=== PATIENT | female | born 1975 | race Caucasian/White ===

== ENCOUNTER → 2018-02-01 09:38 | Outpatient (CLI) | payer OTHER, SELFPAY ==
[2018-02-01 10:27] LABS: Hematocrit 40.3 % (36-46); Hemoglobin 13.3 g/dL (12.0-16.0); Mean Corpuscular Hemoglobin 27.6 PG (26-34); Mean Corpuscular Volume 83.6 fL (80-100); Platelet Count 206 X10^3/uL (150-400); Red Blood Cell Count 4.82 X10^6/uL (4.0-5.2); Red Cell Distribution Width 15.6 % (11.6-14.8); White Blood Cell Count 10.5 X10^3/uL (4.5-11.0)
[2018-02-01 10:49] LABS: Neutrophils Absolute Manual 6825 /uL (3000-5900); Total Cells Counted 100
[2018-02-01 10:50] LABS: Morphology Comment Normal Morphology
[2018-02-01 11:25] LABS: Free T4, Direct Thyroxine 0.81 ng/dL (0.78-2.19)
[2018-02-01 11:39] LABS: Thyroid Stimulating Hormone 2.35 uIU/mL (0.47-4.68)
== END ==
PROVIDERS: PCP Obstetrics & Gynecology; Visit Provider Obstetrics & Gynecology
DX: R53.83 Other fatigue (principal)
CPT/HCPCS: 36415; 84439; 84443; 85025

== ENCOUNTER → 2018-05-05 16:07 | Outpatient (CLI) | payer OTHER, SELFPAY ==
[2018-05-09 15:54] LABS: Estradiol 74 pg/mL; Progesterone < 0.5 ng/mL
== END ==
PROVIDERS: PCP Obstetrics & Gynecology; Visit Provider Obstetrics & Gynecology
DX: E89.40 Asymptomatic postprocedural ovarian failure (principal)
CPT/HCPCS: 36415; 82670; 84144

== ENCOUNTER → 2018-06-02 11:44 | Outpatient (CLI) | payer OTHER, SELFPAY ==
--- NOTE | 2018-06-02 | DI.CT.S_ITS ---
PROCEDURE: CT ABDOMEN PELVIS W CON INDICATIONS: GENERALIZED ABDOMINAL PAIN/NAUSEA TECHNIQUE: After the administration of oral and intravenous contrast, 5 mm thick sections acquired from the diaphragms to the symphysis. 5 mm thick coronal and sagittal reformats were performed. For radiation dose reduction, the following was used: automated exposure control, adjustment of mA and/or kV according to patient size. COMPARISON: [facility] [place], CT, ABDOMEN/PELVIS WITH CONTRAST, 10/04/2015, 14:34. [facility] [place], [place], ABDOMEN/PELVIS WITH CONTRAST, 07/31/2015, 22:04. [facility] [place], [place], ABDOMEN/PELVIS WITH CONTRAST, 04/04/2009, 16:41. FINDINGS: Image quality: Diagnostic. ABDOMEN: Lung bases: Lung bases are clear. Heart size is normal. Solid organs: The liver is slightly hypodense when compared to the spleen. No definite liver lesions are appreciated. The gallbladder is not enlarged or inflamed. The common bile duct is normal in course and caliber. The spleen, adrenals, and kidneys appear to be within normal limits. No hydronephrosis of the kidneys is identified. No renal calculi are appreciated. There is marked atrophy involving the body and tail of the pancreas, which is unchanged since multiple prior examinations dating back to 2008. The previously seen peripherally calcified pseudocyst within the region of the tail the pancreas has resolved. However, the calcification remains. The head and uncinate process of the pancreas are within normal limits there is no surrounding inflammation is evident. Peritoneum and bowel: There is a small hiatal hernia. Otherwise, stomach and duodenum are unremarkable. No significant small bowel dilatation is present. Moderate residual stool seen within the colon. The appendix is well-visualized and normal. No mesenteric inflammation is evident. There is no free fluid or loculated fluid collection. Nodes and vessels: No retroperitoneal or mesenteric adenopathy. Aorta and inferior vena cava are normal in caliber. Bones: No acute fractures are identified. No suspicious osseous lesions are present. There are mild to moderate degenerative changes of the lower lumbar spine. PELVIS: Genitourinary: Bladder wall thickness is normal. The uterus and ovaries do not appear to be enlarged. Previously seen ovarian cysts have resolved or been excised in the interim. Miscellaneous: No inguinal hernias or adenopathy. No free fluid or loculated fluid collection is evident. Bones: No suspicious bony lesions. No acute pelvic fractures are evident. There are degenerative changes of the bilateral sacroiliac joints. IMPRESSION: 1. No evidence of acute abdominal infection. 2. Probable mild hepatic steatosis. 3. Prominent atrophy of the body and tail of the pancreas is unchanged. No peripancreatic inflammation is evident. 4. No bowel obstruction. The appendix is within normal limits. Dictated by: Dilip Villegas M.D. on 06/02/2018 at 12:17 Approved by: Dilip Villegas M.D. on 06/02/2018 at 12:25
--- NOTE | 2018-06-02 | DI.RAD.S_ITS ---
PROCEDURE: XR CHEST 2V INDICATIONS: ELEVATED WHITE BLOOD CELL TECHNIQUE: 2 views of the chest were acquired. COMPARISON: formerly [facility], CHEST 2 VIEW, 04/04/2009, 18:35. formerly [facility], CHEST 2 VIEW, 04/02/2009, 8:26. FINDINGS: Surgical changes and devices: None. Lungs and pleura: No pleural effusions or pneumothorax. Lungs are clear. Mediastinum: Mediastinal contours are normal. Heart size is normal. Bones and chest wall: No suspicious bony abnormalities. Soft tissues appear unremarkable. IMPRESSION: Normal for age, source of current symptoms is not seen. Dictated by: Tommy Isaacs M.D. on 06/02/2018 at 14:51 Approved by: Tommy Isaacs M.D. on 06/02/2018 at 14:52
--- NOTE | 2018-06-02 | DI.RAD.S_ITS ---
PROCEDURE: XR SHOULDER LT MIN 2V INDICATIONS: ELEVATED WHITE BLOOD CELL TECHNIQUE: 3 views of the shoulder were acquired. COMPARISON: None. FINDINGS: Bones: No fractures or dislocations. No suspicious bony lesions. Visualized ribs appear intact. Soft tissues: No suspicious soft tissue calcifications. IMPRESSION: Normal for age, source of current symptoms is not seen. Dictated by: Tommy Isaacs M.D. on 06/02/2018 at 14:52 Approved by: Tommy Isaacs M.D. on 06/02/2018 at 14:52
== END ==
PROVIDERS: PCP Physician Assistant; Visit Provider Physician Assistant
DX: R10.84 Generalized abdominal pain (principal); K86.89 Other specified diseases of pancreas; M25.512 Pain in left shoulder; R11.0 Nausea; D72.829 Elevated white blood cell count, unspecified
CPT/HCPCS: 71046; 73030; 74177; Q9967

== ENCOUNTER → 2018-06-22 13:21 | Outpatient (REF) | payer OTHER, SELFPAY ==
[2018-06-22 13:26] LABS: Add Manual Diff / Slide Review NO; Basophils Percent Auto 0.5 % (0-2); Eosinophils Percent Auto 3.3 % (2-4); Hematocrit 40.5 % (36-46); Hemoglobin 12.9 g/dL (12.0-16.0); Lymphocytes Percent Auto 25.1 % (25-40); Mean Corpuscular Hemoglobin 26.9 PG (26-34); Mean Corpuscular Volume 84.3 fL (80-100); Monocytes Percent Auto 8.3 % (3-14); Neutrophils Absolute Auto 6300 /uL (1500-7000); Neutrophils Percent Auto 62.8 % (50-75); Platelet Count 206 X10^3/uL (150-400); Red Cell Distribution Width 15.7 % (11.6-14.8)
[2018-06-22 13:56] LABS: Erythrocyte Sedimentation Rate 17 MM/HR (0-20)
[2018-06-22 14:05] LABS: C-Reactive Protein Quant 2.6 mg/dL (<1.0)
[2018-06-22 14:32] LABS: Cancer Antigen 125 < 6 U/mL (0-35)
== END ==
LOC: LAB 13:21
PROVIDERS: PCP Physician Assistant; Visit Provider Internal Medicine
DX: M54.9 Dorsalgia, unspecified (principal); Z12.73 Encounter for screening for malignant neoplasm of ovary
CPT/HCPCS: 85025; 85651; 86140; 86304

== ENCOUNTER → 2018-06-30 15:48 | Outpatient (CLI) | payer OTHER, SELFPAY ==
--- NOTE | 2018-06-30 15:49 | DI.MRI.S_ITS ---
PROCEDURE: MR THORACIC SPINE WO/W CON INDICATIONS: Upper spine pain. Left shoulder blade pain TECHNIQUE: Noncontrast sagittal T1 spin echo and T2 fast spin echo, sagittal STIR, axial T1 and T2 fast spin echo through the thoracic spine. After the administration of contrast, axial and sagittal T1 spin echo with fat saturation through the thoracic spine. COMPARISON: Former[facility], CR, THORACIC SPINE 3 VIEWS, 02/17/2009, 11:34. [facility], MR, MR CERVICAL SPINE WO/W CON, 06/30/2018, 16:03. FINDINGS: Image quality: Excellent. Alignment and curvature: There is normal bony alignment. Marrow: Marrow is of normal overall signal. No acute vertebral body compression fractures. Spinal cord: Visualized spinal cord is of normal signal and size, without abnormal enhancement. Paraspinous soft tissues: No paravertebral masses or abnormal enhancement. Miscellaneous: Central canal and foramina appear widely patent at all scanned levels. IMPRESSION: No significant thoracic spine MRI abnormality can be seen. No abnormal enhancement. Dictated by: Fausto Atwood M.D. on 06/30/2018 at 16:49 Approved by: Fausto Atwood M.D. on 06/30/2018 at 16:51
--- NOTE | 2018-06-30 15:49 | DI.MRI.S_ITS ---
PROCEDURE: MR CERVICAL SPINE WO/W CON INDICATIONS: Neck pain radiating into left shoulder blade TECHNIQUE: Noncontrast sagittal T1 spin echo and T2 fast spin echo, sagittal STIR, foraminal oblique sagittal T2 fast spin echo, axial gradient echo or T2 fast spin echo through the cervical spine. After the administration of contrast, axial and sagittal T1 spin echo with fat saturation through the cervical spine. COMPARISON: [facility], MR, MR THORACIC SPINE WO/W CON, 06/30/2018, 16:03. FINDINGS: Image quality: This examination is limited by involuntary motion artifact. Alignment and curvature: There is normal bony alignment. Marrow: Marrow is normal in overall signal, without suspicious enhancement. Spinal cord: Visualized spinal cord has normal size and signal. No cerebellar tonsillar herniation. No abnormal intramedullary enhancement. Paraspinous soft tissues: No paravertebral masses or suspicious enhancement. C2-3: The disc height is well-preserved. Loss of disc signal is seen at this level. Moderate generalized disc osteophyte complex is seen. There is moderate to prominent right-sided facet hypertrophy seen. Mild left-sided facet hypertrophy is seen. There is moderate to severe right-sided neural foraminal narrowing and moderate left-sided neural foraminal narrowing. Mild central canal narrowing is seen. C3-4: The disc height is well-preserved. Loss of disc signal is seen at this level. Moderate to prominent right-sided and moderate right-sided facet hypertrophy is seen. There is moderate to severe bilateral neural foraminal narrowing seen. Mild central canal narrowing is seen. C4-5: The disc height is well-preserved. Loss of disc signal is seen at this level. A mild degree of generalized disc osteophyte complex is seen. There is moderate to severe right-sided and moderate left-sided facet hypertrophy seen. Moderate to severe bilateral neural foraminal narrowing is seen, right worse than left. Mild central canal narrowing is seen. C5-6: Mild loss of disc height is seen. Loss of disc signal is seen. A mild degree of generalized disc osteophyte complex is seen. There is moderate to prominent right-sided facet hypertrophy and mild facet hypertrophy. There is moderate to severe right-sided neural foraminal narrowing and moderate left-sided neural foraminal narrowing seen. Mild central canal narrowing is seen. C6-7: The disc height is well-preserved. Loss of disc signal is seen at this level. A mild degree of generalized disc osteophyte complex is seen. Moderate facet joint hypertrophy is seen. There is moderate to severe left-sided and at least moderate right-sided neural foraminal narrowing seen. Mild central canal narrowing is seen. C7-T1: No significant abnormality is seen. IMPRESSION: Cervical spine degenerative changes are seen, which are more prominent than would be expected for a patient of this relatively young age. Several levels of moderate to severe neural foraminal narrowing can be seen. No abnormal enhancement is seen. Dictated by: Fausto Atwood M.D. on 06/30/2018 at 16:41 Approved by: Fausto Atwood M.D. on 06/30/2018 at 16:48
== END ==
PROVIDERS: PCP Physician Assistant; Visit Provider Internal Medicine
DX: M54.6 Pain in thoracic spine (principal); M25.512 Pain in left shoulder; M47.812 Spondylosis without myelopathy or radiculopathy, cervical region; M48.02 Spinal stenosis, cervical region
CPT/HCPCS: 72156; 72157; A9579

== ENCOUNTER → 2018-08-30 09:06 | Outpatient (CLI) | payer OTHER, SELFPAY ==
[2018-08-30 10:17] LABS: Alanine Aminotransferase 33 IU/L (9-52); Albumin 4.4 g/dL (3.5-5.0); Albumin Globulin Ratio 1.3 (1.0-2.8); Alkaline Phosphatase 84 U/L (38-126); Aspartate Aminotransferase 20 IU/L (14-36); BUN Creatinine Ratio 22.9 (6-22); Bilirubin Total 0.3 mg/dL (0.2-1.3); Blood Urea Nitrogen 16 mg/dL (7-17); Calcium 9.2 mg/dL (8.4-10.2); Carbon Dioxide 23 mmol/L (22-32); Chloride 106 mmol/L (98-107); Cholesterol 141 mg/dL (140-199); Estimated Glomerular Filt Rate > 60.0 mL/min (>60); Globulin 3.5 g/dL (1.7-4.1); Glucose 102 mg/dL (70-100); HDL Cholesterol 46 mg/dL (40-60); HEMOLYSIS < 15 (0-50); LDL Cholesterol Calculated 78 mg/dL (<100); Potassium 3.8 mmol/L (3.4-5.1); Sodium 139 mmol/L (137-145); Total Protein 7.9 g/dL (6.3-8.2); Triglycerides 83 mg/dL (35-150)
== END ==
PROVIDERS: PCP Physician Assistant; Visit Provider Physician Assistant
DX: E78.5 Hyperlipidemia, unspecified (principal)
CPT/HCPCS: 36415; 80053; 80061

== ENCOUNTER → 2019-04-05 09:21 | Outpatient (CLI) | payer OTHER, SELFPAY ==
--- NOTE | 2019-04-05 | DI.RAD.S_ITS ---
PROCEDURE: XR FOOT RT MIN 3V INDICATIONS: PAIN AT BASE OF 5TH METATARASAL TECHNIQUE: 3 views of the foot were acquired. COMPARISON: None. FINDINGS: Bones: No fractures or dislocations. No suspicious bony lesions. Small posterior and plantar calcaneal spur. Incidental os peroneum Soft tissues: No tibiotalar joint effusion. Achilles tendon appears normal. IMPRESSION: No fracture. If the patient's pain or other symptoms persist, consider further evaluation with MRI Small posterior and plantar calcaneal spur. Dictated by: Danial Gant M.D. on 04/05/2019 at 17:01 Approved by: Danial Gant M.D. on 04/05/2019 at 17:03
== END ==
PROVIDERS: PCP Physician Assistant; Visit Provider Student in an Organized Health Care Education/Training Program
DX: M79.671 Pain in right foot (principal); M77.31 Calcaneal spur, right foot
CPT/HCPCS: 73630

== ENCOUNTER → 2020-02-20 08:07 | Outpatient (CLI) | payer OTHER, SELFPAY ==
[2020-02-20 09:01] LABS: Add Manual Diff / Slide Review NO; Basophils Absolute Auto 0 /uL (0-100); Basophils Percent Auto 0.4 % (0-2); Eosinophils Absolute Auto 300 /uL (0-450); Hematocrit 40.3 % (36-46); Lymphocytes Absolute Auto 3000 /uL (1100-4500); Lymphocytes Percent Auto 29.4 % (25-40); Mean Corpuscular HGB Conc 32.2 % (30-36); Mean Corpuscular Hemoglobin 27.2 PG (26-34); Mean Corpuscular Volume 84.5 fL (80-100); Monocytes Absolute Auto 700 /uL (0-900); Monocytes Percent Auto 7.1 % (3-14); Neutrophils Absolute Auto 6200 /uL (1500-7000); Neutrophils Percent Auto 60.1 % (50-75); Platelet Count 194 X10^3/uL (150-400); Red Blood Cell Count 4.77 X10^6/uL (4.0-5.2); Red Cell Distribution Width 15.5 % (11.6-14.8); White Blood Cell Count 10.3 X10^3/uL (4.5-11.0)
[2020-02-20 09:42] LABS: Progesterone, Total 2.55 ng/mL
[2020-02-20 09:57] LABS: Estradiol, Total 59.3 pg/mL
== END ==
PROVIDERS: PCP Physician Assistant; Referring Provider Obstetrics & Gynecology; Visit Provider Obstetrics & Gynecology
DX: Z78.0 Asymptomatic menopausal state (principal)
CPT/HCPCS: 36415; 82670; 84144; 85025

== ENCOUNTER → 2020-08-13 09:04 | Outpatient (CLI) | payer OTHER, SELFPAY ==
[2020-08-13 10:41] LABS: Estradiol, Total 28.3 pg/mL
[2020-08-19 08:13] LABS: Percent Free Testosterone 3.13 % (0.50-2.80); Testosterone Free 0.38 ng/dL (0.10-0.85)
== END ==
PROVIDERS: PCP Physician Assistant; Referring Provider Obstetrics & Gynecology; Visit Provider Obstetrics & Gynecology
DX: N95.1 Menopausal and female climacteric states (principal)
CPT/HCPCS: 36415; 82670; 84144; 84402; 84403

== ENCOUNTER → 2020-12-17 12:14 | Outpatient (CLI) | payer OTHER, SELFPAY ==
[2020-12-17 12:55] LABS: Add Manual Diff / Slide Review NO; Basophils Absolute Auto 100 /uL (0-100); Basophils Percent Auto 0.5 % (0-2); Eosinophils Absolute Auto 500 /uL (0-450); Eosinophils Percent Auto 4.3 % (2-4); Hematocrit 38.6 % (36-46); Hemoglobin 12.2 g/dL (12.0-16.0); Lymphocytes Absolute Auto 3000 /uL (1100-4500); Lymphocytes Percent Auto 25.5 % (25-40); Mean Corpuscular HGB Conc 31.7 % (30-36); Mean Corpuscular Hemoglobin 26.1 PG (26-34); Mean Corpuscular Volume 82.3 fL (80-100); Monocytes Absolute Auto 600 /uL (0-900); Monocytes Percent Auto 5.4 % (3-14); Neutrophils Absolute Auto 7500 /uL (1500-7000); Neutrophils Percent Auto 64.3 % (50-75); Platelet Count 227 X10^3/uL (150-400); Red Blood Cell Count 4.69 X10^6/uL (4.0-5.2); Red Cell Distribution Width 16.7 % (11.6-14.8); White Blood Cell Count 11.6 X10^3/uL (4.5-11.0)
[2020-12-17 13:14] LABS: Hemoglobin A1C% w Est Avg Glu 5.9 % (4.0-6.0)
[2020-12-17 13:30] LABS: Alanine Aminotransferase 32 IU/L (<35); Albumin 4.2 g/dL (3.5-5.0); Albumin Globulin Ratio 1.2 (1.0-2.8); Alkaline Phosphatase 83 U/L (38-126); Aspartate Aminotransferase 35 IU/L (14-36); BUN Creatinine Ratio 14.5 (6-22); Bilirubin Total 0.4 mg/dL (0.2-1.3); Blood Urea Nitrogen 12 mg/dL (7-17); Calcium 9.9 mg/dL (8.4-10.2); Carbon Dioxide 23 mmol/L (22-32); Chloride 109 mmol/L (98-107); Cholesterol 159 mg/dL (140-199); Estimated Glomerular Filt Rate > 60.0 mL/min (>60); Globulin 3.4 g/dL (1.7-4.1); Glucose 98 mg/dL (70-100); HDL Cholesterol 52 mg/dL (40-60); HEMOLYSIS < 15 (0-50); LDL Cholesterol Calculated 89 mg/dL (<100); Potassium 4.1 mmol/L (3.4-5.1); Sodium 141 mmol/L (137-145); Total Protein 7.6 g/dL (6.3-8.2); Triglycerides 88 mg/dL (35-150)
== END ==
PROVIDERS: PCP Physician Assistant; Referring Provider Physician Assistant; Visit Provider Physician Assistant
DX: E78.5 Hyperlipidemia, unspecified (principal); E66.9 Obesity, unspecified; Z68.41 Body mass index [BMI] 40.0-44.9, adult
CPT/HCPCS: 36415; 80053; 80061; 83036; 85025

== ENCOUNTER → 2021-09-10 14:35 | Outpatient (CLI) | payer OTHER, SELFPAY ==
[2021-09-10 16:20] LABS: Add Manual Diff / Slide Review NO; Basophils Absolute Auto 100 /uL (0-100); Basophils Percent Auto 0.5 % (0-2); Eosinophils Absolute Auto 300 /uL (0-450); Eosinophils Percent Auto 2.5 % (2-4); Hematocrit 36.5 % (36-46); Hemoglobin 11.9 g/dL (12.0-16.0); Lymphocytes Absolute Auto 3300 /uL (1100-4500); Lymphocytes Percent Auto 26.2 % (25-40); Mean Corpuscular HGB Conc 32.6 % (30-36); Mean Corpuscular Hemoglobin 26.5 PG (26-34); Mean Corpuscular Volume 81.2 fL (80-100); Monocytes Absolute Auto 800 /uL (0-900); Monocytes Percent Auto 6.5 % (3-14); Neutrophils Absolute Auto 8100 /uL (1500-7000); Neutrophils Percent Auto 64.3 % (50-75); Platelet Count 235 X10^3/uL (150-400); Red Cell Distribution Width 17.2 % (11.6-14.8); White Blood Cell Count 12.6 X10^3/uL (4.5-11.0)
== END ==
PROVIDERS: PCP Physician Assistant; Referring Provider Obstetrics & Gynecology; Visit Provider Obstetrics & Gynecology
DX: D64.9 Anemia, unspecified (principal)
CPT/HCPCS: 36415; 85025

== ENCOUNTER → 2023-05-06 16:12 | Outpatient (CLI) | payer OTHER, SELFPAY ==
[2023-05-09 11:50] LABS: Candida species Negative (Negative); Gardnerella vaginalis Negative (Negative); Trichomoas vaginalis Negative (Negative)
== END ==
PROVIDERS: PCP Physician Assistant; Visit Provider Obstetrics & Gynecology
DX: B37.31 Acute candidiasis of vulva and vagina (principal)
CPT/HCPCS: 87480; 87510; 87660

== ENCOUNTER → 2023-09-15 14:58 | Outpatient (CLI) | payer SELFPAY ==
[2023-09-15 19:17] LABS: Estradiol, Total 103.4 pg/mL
[2023-09-23 07:36] LABS: Percent Free Testosterone 2.03 % (0.50-2.80); Testosterone Free 0.33 ng/dL (0.10-0.85); Testosterone Total 16.4 ng/dL (.)
== END ==
PROVIDERS: PCP Physician Assistant; Referring Provider Obstetrics & Gynecology; Visit Provider Obstetrics & Gynecology
DX: E89.40 Asymptomatic postprocedural ovarian failure (principal)
CPT/HCPCS: 36415; 82670; 84402; 84403